=== PATIENT | female | born 1995 | race Hispanic/Latino ===

== ENCOUNTER 2016-11-15 15:32 | Emergency (ER) | payer OTHER ==
[~2016-11-15] VITALS: Ht 149.9 cm; Wt 58.5 kg
[~2016-11-15 15:32] MED LIST: FLUOXETINE HYDR20 M1 PO; FLUOXETINE10 M1 PO; METFORMIN500 MG PO; METRONIDAZOLE0.75%; OMEPRAZOLE D/R20 MG PO; PEPCID20 MG PO; PERCOCET 325 MG1 TA2 PO; TRAMADOL50 MG PO; ZOFRAN ODT4 M1 PO; ZOFRAN4 M1 SL
[2016-11-15] MEDS ORDERED: METFORMIN HCL500 M4 PO (16:06)
--- NOTE | 2016-11-15 16:06 | ED GENERAL ADULT ---
History of Present Illness General Chief Complaint: Nausea, Vomiting, Diarrhea Stated Complaint: NVD Source: patient Exam Limitations: no limitations Vital Signs & Intake/Output Vital Signs & Intake/Output Vital Signs Date Time Temp Pulse Resp B/P B/P Pulse O2 O2 Flow FiO2 Mean Ox Delivery Rate 11/15 1911 Room Air 100% 11/15 1726 97.5 87 18 117/67 100 11/15 1540 97.2 105 18 115/74 100 Room Air ED Intake and Output 11/16 0000 11/15 1200 Intake Total 0 Output Total Balance 0 Intake, Oral 0 Patient 129 lb Weight Weight Reported by Patient Measurement Method Allergies Coded Allergies: shrimp (ANAPHYLAXIS 11/15/16) Reconcile Medications Amoxicillin 500 MG TABLET 1 TAB PO BID UTI Cholecalciferol (Vitamin D3) (Vitamin D) (Unknown Strength) CAPSULE (Unknown Dose) PO DAILY SUPPLEMENT (Reported) Fluoxetine HCl 20 MG TABLET 30 MG PO DAILY MENTAL HEALTH (Reported) Metformin HCl (Metformin HCl ER) 500 MG TAB.ER.24H 1 TAB PO BID DM & PCOS ( Reported) Oxycodone HCl/Acetaminophen (Percocet 5-325 MG Tablet) 5 MG-325 MG TABLET 1 TAB PO BID PAIN Pantoprazole Sodium 40 MG TABLET.DR 1 TAB PO DAILY GI (Reported) Prazosin HCl 1 MG CAPSULE 1 CAP PO QPM NIGHT TERRORS (Reported) Spironolactone 25 MG TABLET 1 TAB PO DAILY DIURETIC (Reported) Triage Note: PT TO ED FOR ABD PAIN, REPORTING ONE EPISODE OF VOMITING YESTERDAY, NONE TODAY. +DIARRHEA X 2 DAYS AND NOW C/O BILATERAL UPPER QUADRANT ABD PAIN. Triage Nurses Notes Reviewed? yes Onset: Abrupt Duration: day(s): Timing: recent history : Yes Patient currently breastfeeds: No HPI: 11/15/16 5 pm 21-year-old female presented to the emergency department complaining of lower abdominal pain. According to the patient she was in her usual state of health until the past 72 hours when she developed lower abdominal pain and vomiting, nausea and diarrhea. She is status post laparoscopic cholecystectomy in July of this year. Past medical history of polycystic ovary disease Onset of the symptoms were abrupt, the duration has been approximately 72 hours, the severity is significant; as her symptoms required her to come to the emergency department for care. Past History Travel History Traveled to [place] past 21 day No Medical History Any Pertinent Medical History? 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 No Review of Systems Review of Systems Constitutional: Reports: no symptoms. EENTM: Reports: no symptoms. Respiratory: Reports: no symptoms. Denies: short of breath. Cardiovascular: Reports: no symptoms. Denies: chest pain. GI: Reports: diarrhea, nausea, vomiting. Genitourinary: Reports: no symptoms. Musculoskeletal: Reports: no symptoms. Skin: Reports: no symptoms. Neurological/Psychological: Reports: no symptoms. Hematologic/Endocrine: Reports: no symptoms. Immunologic/Allergic: Reports: no symptoms. All Other Systems: Reviewed and Negative Physical Exam Physical Exam General Appearance: alert, awake, anxious, mild distress Head: atraumatic, normal appearance Eyes: Bilateral: normal appearance, PERRL, EOMI. Ears, Nose, Throat: normal pharynx, normal ENT inspection, hearing grossly normal Neck: normal inspection Respiratory: normal breath sounds, chest non-tender, no respiratory distress Cardiovascular: regular rate/rhythm Peripheral Pulses: 4+ radial (R), 4+ radial (L) Gastrointestinal: soft, tenderness, suprapubic Back: normal range of motion Extremities: normal inspection, normal range of motion, no edema Neurologic/Psych: no motor/sensory deficits, awake, alert, oriented x 3 Skin: intact, normal color, warm/dry Core Measures ACS in differential dx? No CVA/TIA Diagnosis: No Severe Sepsis Present: No Septic Shock Present: No Progress Differential Diagnoses I considered the following diagnoses in my evaluation of the patient: [ Appendicitis, choledocholithiasis, ectopic , UTI, PID ,cervicitis , ovarian cyst] Plan of Care: Orders Procedure Date/time Status Lab Add-on Test 11/16 0046 Active LIPASE 11/15 1607 Complete COMPREHENSIVE METABOLIC PANEL 11/15 1607 Complete CBC WITHOUT DIFFERENTIAL 11/15 1607 Complete AMYLASE 11/15 1607 Complete URINE 11/15 1542 Complete URINALYSIS 11/15 1542 Complete Laboratory Tests 11/15/16 1623: Anion Gap 14, Estimated GFR > 60, BUN/Creatinine Ratio 15.7, Glucose 92, Calcium 9.5, Total Bilirubin 0.3, AST 23, ALT 37, Alkaline Phosphatase 93, Total Protein 7.3, Albumin 4.2, Globulin 3.1, Albumin/Globulin Ratio 1.4, Amylase 55, Lipase 178, CBC w Diff NO MAN DIFF REQ, RBC 5.05, MCV 83.0, MCH 27.0, RDW 13.2, MPV 8.9 , Gran % 64.4, Lymphocytes % 23.3, Monocytes % 9.4 H, Eosinophils % 2.6, Basophils % 0.3, Absolute Granulocytes 8.7 H, Absolute Lymphocytes 3.2, Absolute Monocytes 1.3 H, Absolute Eosinophils 0.3, Absolute Basophils 0, PUBS MCHC 32.5 L, Urinalysis LIGHT H, Urine Color YEL, Urine Clarity HAZY H, Urine pH 6.0, Ur Specific [place] 1.025, Urine Protein TRACE H, Urine Ketones NEG, Urine Nitrite NEG, Urine Bilirubin NEG, Urine Urobilinogen 0.2, Ur Leukocyte Esterase TRACE H, Ur Microscopic SEDIMENT EXAMINED, Urine RBC 3-5, Urine WBC 3- 5 H, Ur Epithelial Cells FEW, Urine Bacteria FEW H, Urine Mucus FEW, Urine Hemoglobin MOD H, Urine Glucose NEG, Urine Test NEGATIVE 11/15/16 1607: Urine Test Cancelled Initial ED EKG: none Departure Departure Disposition: STILL A PATIENT Condition: Stable Clinical Impression Primary Impression: Abdominal pain Referrals: PATIENT HAS NO PRIMARY CARE DR (PCP/Family) Departure Forms: Customer Survey General Discharge Information Prescriptions: Current Visit Scripts Oxycodone HCl/Acetaminophen (Percocet 5-325 MG Tablet) 1 TAB PO BID #10 TAB Amoxicillin 1 TAB PO BID #30 TAB Comments 11/15/16 7 PM The patient's pain is been ongoing intermittently for the past 3 months. She has minimal pain now in the Emergency Department. Abdomen is soft and nontender. Noncontrast CT is essentially unremarkable. We will give her a slip for an outpatient pelvic ultrasound. 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 She will be empirically treated for UTI. Urine culture is pending. She denied vaginal discharge. Critical Care Note Critical Care Note Critical Care Time: non-applicable
[2016-11-15] MEDS ORDERED: SPIRONOLACTONE25 M1 PO (16:09)
[2016-11-15] MEDS ORDERED: FLUOXETINE HCL20 M3 PO (16:10)
[2016-11-15] MEDS ORDERED: PANTOPRAZOLE SO40 M1 PO (16:11)
[2016-11-15] MEDS ORDERED: PRAZOSIN HCL1 M1 PO (16:11)
[2016-11-15] MEDS ORDERED: VITAMIN D2000 UNIT PO (16:12)
[2016-11-15 16:50] LABS: ABSOLUTE BASOPHIL COUNT 0 /CUMM (0.0-0.2); ABSOLUTE EOSINOPHIL COUNT 0.3 /CUMM (0.0-0.7); ABSOLUTE GRANULOCYTE CT 8.7 /CUMM (1.4-6.5); ABSOLUTE LYMPH COUNT 3.2 /CUMM (1.2-3.4); ABSOLUTE MONOCYTE COUNT 1.3 /CUMM (0.10-0.60); BASOPHIL % 0.3 % (0.0-2.0); EOSINOPHIL % 2.6 % (0-5); GRANULOCYTE % 64.4 % (42.2-75.2); MEAN CORPUSCULAR HGB CONC 32.5 G/DL (33.0-37.0); MEAN PLATELET VOLUME 8.9 FL (7.4-10.4); PLATELET COUNT 261 /CUMM (130-400); RBC DISTRIBUTION WIDTH 13.2 % (11.5-14.5); RED BLOOD CELL CT 5.05 /CUMM (4.20-5.40); WHITE BLOOD CELL COUNT 13.6 /CUMM (4.8-10.8)
[2016-11-15 17:26] VITALS: BP 117/67
--- NOTE | 2016-11-15 17:49 | CT SCAN REPORT ---
EXAMINATION: CT ABDOMEN AND PELVIS WITHOUT CONTRAST CLINICAL INFORMATION: Lower abdominal pain, shellfish allergy. COMPARISON: None TECHNIQUE: Multidetector volumetric imaging was performed from the superior aspect of the liver through the pubic symphysis. Sagittal and coronal reformatted images were obtained on the technologist's workstation. DLP: 254 mGy-cm FINDINGS: LUNG BASES: Unremarkable LIVER AND SPLEEN: Unremarkable PANCREAS GALLBLADDER AND BILIARY TREE: Pancreas and biliary tree appear unremarkable in this postcholecystectomy patient. KIDNEYS, URETERS, AND ADRENALS: Unremarkable URINARY BLADDER: Nearly collapsed limiting evaluation, however, unremarkable. GI TRACT: Colon is stool filled. PERITONEAL CAVITY: Unremarkable RETROPERITONEUM: Unremarkable PELVIC ORGANS: Unremarkable OSSEOUS STRUCTURES: Unremarkable ANTERIOR ABDOMINAL WALL AND SOFT TISSUES: Multiple small inguinal lymph nodes, the largest 1 cm short axis dimension. Small similar-appearing shotty lymph nodes are identified in the mesentery and retroperitoneum without evidence of pathologically enlarged lymph nodes by size criteria. IMPRESSION: No acute process is identified.
[2016-11-15] MEDS ORDERED: PERCOCET 5-3251 EACH PO (18:49)
[2016-11-15] MEDS ORDERED: AMOXICILLIN500 M3 PO (18:50)
== END 2016-11-15 19:04 ==
LOC: ERH 15:32
PROVIDERS: Emergency Medicine
DX: R10.30 Lower abdominal pain, unspecified (principal)
CPT/HCPCS: 74176; 81001; 81025; 87491; 87591; 96372; J1885

== ENCOUNTER 2017-06-24 12:23 | Emergency (ER) | payer OTHER ==
[~2017-06-24 12:23] MED LIST changes: +AMOXICILLIN500 M3 PO; +FLUOXETINE HCL20 M3 PO; +METFORMIN HCL500 M4 PO; +PANTOPRAZOLE SO40 M1 PO; +PERCOCET 5-3251 EACH PO; +PRAZOSIN HCL1 M1 PO; +SPIRONOLACTONE25 M1 PO; +VITAMIN D2000 UNIT PO
--- NOTE | 2017-06-24 15:03 | ED GI/GU/ABDOMINAL COMPLAINT ---
History of Present Illness General Chief Complaint: Female Urogenital Problems Stated Complaint: VAGINAL RASH Source: patient Exam Limitations: no limitations Vital Signs & Intake/Output Vital Signs & Intake/Output Vital Signs Date Time Temp Pulse Resp B/P B/P Pulse O2 O2 Flow FiO2 Mean Ox Delivery Rate 06/24 1523 98.9 92 18 142/92 99 Room Air 06/24 1225 97.4 102 16 125/86 96 Room Air Allergies Coded Allergies: shrimp (ANAPHYLAXIS 11/15/16) Reconcile Medications Amoxicillin 500 MG TABLET 1 TAB PO BID UTI Cholecalciferol (Vitamin D3) (Vitamin D) (Unknown Strength) CAPSULE (Unknown Dose) PO DAILY SUPPLEMENT (Reported) Doxycycline Hyclate 100 MG TABLET 1 TAB PO BID PID Fluoxetine HCl 20 MG TABLET 30 MG PO DAILY MENTAL HEALTH (Reported) Metformin HCl (Metformin HCl ER) 500 MG TAB.ER.24H 1 TAB PO BID DM & PCOS ( Reported) Oxycodone HCl/Acetaminophen (Percocet 5-325 MG Tablet) 5 MG-325 MG TABLET 1 TAB PO BID PAIN Pantoprazole Sodium 40 MG TABLET.DR 1 TAB PO DAILY GI (Reported) Prazosin HCl 1 MG CAPSULE 1 CAP PO QPM NIGHT TERRORS (Reported) Spironolactone 25 MG TABLET 1 TAB PO DAILY DIURETIC (Reported) Valacyclovir HCl (Valtrex) 1,000 MG TABLET 1 TAB PO BID HERPES Triage Note: PT TO ED C/O RASH TO VAGINAL AREA. STATES SHE HAS BURNING WITH URINATION, AND FOUND OUT THAT HER EX HAS CHLAMYDIA AND WANTS TO GET TESTED. STATES SYMPTOMS STARTED X2 DAYS AGO AND DIDNT CONTACT HER OB. Triage Nurses Notes Reviewed? yes ? N Is pt currently ? No Onset: Abrupt Duration: day(s):, constant, continues in ED Timing: recent history Location: vaginal Radiation: no radiation Activities at Onset: none No Modifying Factors: none HPI: 21-year-old female comes into the emergency room with complaints of vaginal discharge and lesions on the outside of her vaginal area. Sexually active. She reports that her previous partner may have had a sexually transmitted disease. She denies any fever chills. She comes in for further evaluation. (Alcon Felton) Past History Travel History Traveled to [place] past 21 day No Medical History Any Pertinent Medical History? 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 No (Alcon Felton) Review of Systems Review of Systems Constitutional: Reports: no symptoms. EENTM: Reports: no symptoms. Respiratory: Reports: no symptoms. Cardiovascular: Reports: no symptoms. GI: Reports: no symptoms. Genitourinary: Reports: see HPI. Musculoskeletal: Reports: no symptoms. Skin: Reports: no symptoms. Neurological/Psychological: Reports: no symptoms. Hematologic/Endocrine: Reports: no symptoms. Immunologic/Allergic: Reports: no symptoms. All Other Systems: Reviewed and Negative (Alcon Felton) Physical Exam Physical Exam General Appearance: well developed/nourished, no apparent distress, alert, awake Head: atraumatic, normal appearance Eyes: Bilateral: normal appearance, EOMI. Ears, Nose, Throat, Mouth: hearing grossly normal, moist mucous membrane Neck: normal inspection Respiratory: no respiratory distress Gastrointestinal: soft, non-tender Pelvic: cervicitis, discharge, lesions, LESIONS WITH CENTRAL UMBILICATION SCATTERED AROUND THE VAGINA UPPER THIGHS WELL SUPRAPUBIC uLCERATIVE LESIONS LOCATED ON THE LABIA WELL THE CERVIX, HEAVY AMOUNT OF WHITE YELLOWISH DISCHARGE IN VAGINAL VAULT, CERVICAL MOTION TENDERNESS Back: normal range of motion Extremities: normal range of motion Neurologic/Psych: awake, alert Core Measures ACS in differential dx? No Sepsis Present: No Sepsis Focused Exam Completed? No (Alcon Felton) Progress Differential Diagnosis: ovarian cyst, ovarian torsion, UTI/pyelo, GONORRHEA, CHLAMYDIA, MOLLUSCUM CONTAGIOSUM, HERPES, pid, tRICHOMONAS, Plan of Care: Orders Procedure Date/time Status TRICHOMONAS 06/24 1502 Complete POTASSIUM HYDROXIDE (MILAN) 06/24 1502 Complete GENITAL CULTURE 06/24 1502 Active CHLAMYDIA-GC DNA PROBE 06/24 1502 Active CHLAMYDIA-GC DNA PROBE 06/24 1227 Active URINE 06/24 1227 Complete URINALYSIS 06/24 1227 Complete Laboratory Tests 06/24/17 1411: Urinalysis LIGHT H, Urine Color YEL, Urine Clarity HAZY H, Urine pH 6.5, Ur Specific [place] 1.020, Urine Protein NEG, Urine Ketones NEG, Urine Nitrite NEG, Urine Bilirubin NEG, Urine Urobilinogen 0.2, Ur Leukocyte Esterase SMALL H, Ur Microscopic SEDIMENT EXAMINED, Urine RBC 10-15 H, Urine WBC 15-25 H, Ur Epithelial Cells MOD H, Urine Bacteria MOD H, Urine Mucus MOD H, Urine Hemoglobin SMALL H, Urine Glucose NEG, Urine Test NEGATIVE Microbiology 06/24 1410 URINE ROUT: GC DNA Probe - RECD 06/24 1411 URINE ROUT: Chlamydia DNA Probe (TOSHA) - RECD 06/24 1300 GENITAL: GC DNA Probe - RECD 06/24 1300 GENITAL: Chlamydia DNA Probe (TOSHA) - RECD 06/24 1300 GENITAL: MILAN Preparation - COMP 06/24 1300 GENITAL: Trichomonas Preparation - COMP 06/24 1300 GENITAL: Genital Culture - RECD Initial ED EKG: none (Alcon Felton) Departure Departure Disposition: HOME OR SELF CARE Condition: Stable Clinical Impression Primary Impression: PID (acute pelvic inflammatory disease) Secondary Impressions: Herpes genitalia, Molluscum contagiosum Referrals: Derrek ONEILL,Frances Nagel (PCP/Family) Additional Instructions: Take doxycycline and Valtrex as prescribed. No sexual intercourse. All partner should be treated. Follow-up with your automatic thread winder. Return if any other concerns worsening symptoms. Please go over all results of today's visit with your primary care doctor. Contact your primary care doctor to let them know you were here in the emergency room. There may be nonspecific findings which may not be related to your visit today here in the emergency room but may require further evaluation and chronic monitoring by your primary care doctor. If you had a laceration today the chance of foreign body always remains. You should follow-up with your primary care doctor for recheck in 3-5 days for a wound check. If you had an x-ray done there is a chance that a fracture could have been missed on initial read and you should follow-up with your primary care doctor for repeat x-rays if symptoms persist. If your blood pressure was elevated here in the emergency room please have rechecked by louie primary care doctor within the next 48. If you were prescribed a narcotic here in the emergency room or any type of controlled substances you're not allowed to drive while taking this medication or operate any type of heavy machinery. Narcotics can make you feel lightheaded dizziness nausea and can cause constipation. You may need to cloth picker a stool softener. Thank you for choosing [facility] emergency room. Please return to the emergency room immediately if you have any other concerns worsening of symptoms. Departure Forms: Customer Survey General Discharge Information Prescriptions: Current Visit Scripts Doxycycline Hyclate 1 TAB PO BID #20 TAB Valacyclovir HCl (Valtrex) 1 TAB PO BID #20 TAB Comments 06/24/2017 3:28:28 PM Patient clinically looks well. Patient is in no apparent distress. Patient is nontoxic-appearing abdomen. Afebrile. Patient broad-spectrum coverage. Follow -up with automatic thread winder. No sexual intercourse. All partners should be treated. Return if any other concerns worsening symptoms. (Alcon Felton) PA/QUILL REAMER Co-Sign Statement Statement: ED Attending supervision documentation- [] I saw and evaluated the patient. I have also reviewed all the pertinent lab results and diagnostic results. I agree with the findings and the plan of care as documented in the PA's/QUILL REAMER's documentation. [X] I have reviewed the ED Record and agree with the PA's/QUILL REAMER's documentation. [] Additions or exceptions (if any) to the PAs/QUILL REAMER's note and plan are summarized below: [] (Ronni ONEILL,Zoe) ED Attending Observation Initial Observation Note: I have seen and personally examined ZACKARY LOMAS on 06/24/17 at 1530. I agree with the current emergency department documentation. The disposition (admission or discharge) is uncertain at this time, she needs a period of observation for the following reason(s): The ED Nurse caring for this patient has been personally informed as to what the patient is being observed for. (Alcon Felton)
[2017-06-24 15:23] VITALS: BP 142/92
[2017-06-24] MEDS ORDERED: DOXYCYCLINE HY100 M4 PO (15:27)
[2017-06-24] MEDS ORDERED: VALTREX1000 MG PO (15:27)
== END 2017-06-24 15:44 ==
LOC: ERH 12:23
DX: N73.0 Acute parametritis and pelvic cellulitis (principal); A60.09 Herpesviral infection of other urogenital tract; B08.1 Molluscum contagiosum
CPT/HCPCS: 87070; 81001; 81025; 87491; 87591; 96372; J0456; J0696